=== PATIENT | male | born 1950 | race African-American/Black ===

== ENCOUNTER → 2019-06-29 | Outpatient (CLI) | payer OTHER ==
--- NOTE | 2019-06-29 14:11 | RAD ---
MR#: [id number] Date of Study: 06/29/2019 Ordering Physician: CHERRY MIRZA, Referring Physician: CHERRY MIRZA, Tech: Ela Harden RT R, [facility] AP[facility]OV[facility] Patient Location : OUT-PATIENT Indications Lower Extremity Edema : Bilateral Past History Diabetes Findings Grayscale images of the bilateral greater and lesser saphenous veins were limited but grossly no obvi ous abnormalities noted. The right great saphenous vein measures 3 mm in the left great saphenous vein measures 3 mm. Neither vein shows any evidence of reflux. Bilateral lesser saphenous veins do not reveal any evidence of ref lux. Critical Notification Critical Value: No <Conclusion> 1. Negative for reflux in the bilateral greater and lesser saphenous veins Signed by : Cherry Mirza, Electronically Approved : 06/29/2019 14:10:25
== END | disposition home or self-care (01) ==
LOC: US 12:35
PROVIDERS: ATTEND Internal Medicine Cardiovascular Disease
DX: I87.2 Venous insufficiency (chronic) (peripheral) (principal); E11.9 Type 2 diabetes mellitus without complications; R60.0 Localized edema
CPT/HCPCS: 93970

== ENCOUNTER → 2022-01-30 | Outpatient (CLI) | payer MEDICARE ==
--- NOTE | 2022-01-30 14:10 | RAD ---
MR#: [id number] Date of Study: 01/30/2022 Ordering Physician: CHERRY MIRZA, Referring Physician: CHERRY MIRZA, Tech: Madison Knight, RDMS, RVT, RTR APPROVED REPORT Patient Location: OUT-PATIENT Laterality:Bilateral Indications TIA Risk Factors Diabetes, Smoking Doppler Spectral Velocity Analysis Right Left pCCA 127/19 cm/spCCA 183/36 cm/s mCCA 98/16 cm/smCCA 128/30 cm/s dCCA 77/15 cm/sdCCA 130/29 cm/s ECA 106/ cm/sECA 120/ cm/s pICA 52/10 cm/spICA 50/12 cm/s Kaiden 120/34 cm/smICA 88/26 cm/s dICA 108/32 cm/sdICA 104/32 cm/s Vert. 50/ cm/sVert. 32/ cm/s ICA/CCA 1.22ICA/CCA 0.81 Findings Grayscale which is demonstrate mild diffuse atherosclerotic plaque in the carotid vessels. Overall based on Balestra Svetlana M0 to less than 50% stenosis in the bilateral internal carotid arter ies with normal ICA to CCA ratios. Bilateral vertebral velocities are antegrade and within normal limits although the left vertebral art silvia is not well visualized. Bilateral common carotid artery velocities are mildly elevated without any clear evidence of obstruct jac disease Critical Notification Critical Value: No <Conclusion> 1. No significant extracranial carotid occlusive disease bilaterally. Signed by : Cherry Mirza, Electronically Approved : 01/30/2022 14:10:40
--- NOTE | 2022-01-30 14:12 | RAD ---
MR#: [id number] Date of Study: 01/30/2022 Ordering Physician: CHERRY MIRZA, Referring Physician: CHERRY MIRZA, Tech: Maidson Knight, MARSHAMS, RVT, RTR APPROVED REPORT Patient Location: OUT-PATIENT Indications PAD Risk Factors Diabetes Smoking VELOCITY AND DOPPLER WAVEFORM ANALYSIS RIGHT cm/secWaveformSeverity LEFT cm/secWaveform Severity pCFA 150.9pCFA 156.4 dCFA 140.7dCFA 132.3 Prof Fem Art. 108.3Prof Fem Art. 91.1 Fem Art Prox. 144.4Fem Art Prox. 138.8 Fem Art Mid. 128.6Fem Art Mid. 102.5 Fem Art Dist. 117.5Fem Art Dist. 107.4 Pop Art(AK) 134.2Pop Art(AK) 87.6 Pop Art(BK) 108.3Pop Art(BK) 113.2 CAREER EDUCATION TEACHER Prox. 93.1PTA Prox. 104.8 CAREER EDUCATION TEACHER Dist. 109.9PTA Dist. 66.2 Per Art Prox. 85.1Per Art Prox. 79.5 SURESH Prox. 51.5ATA Prox. 68.0 DPA 94DPA 60 Findings Grayscale images the bilateral lower extremity arterial vessels demonstrates mild to moderate diffuse atherosclerotic plaque. Waveforms are mostly triphasic and biphasic from the common femoral artery to the below-knee vessels. At the level of the ankle there are mostly monophasic waveforms due to se rosa diffuse disease. Critical Notification Critical Value: No <Conclusion> 1. No significant high-grade atherosclerotic disease in the bilateral lower extremities from the com mon femoral artery to the level of the ankle. At the level of the ankle there is severe diffuse dise ase. Signed by : Cherry Mirza, Electronically Approved : 01/30/2022 14:12:19
--- NOTE | 2022-01-30 14:13 | RAD ---
MR#: [id number] Date of Study: 01/30/2022 Ordering Physician: CHERRY MIRZA, Referring Physician: CHERRY MIRZA, Tech: Madison Knight RDMS, RVT, RTR APPROVED REPORT Patient Location: OUT-PATIENT Exam Type: Ankle to Brachial Index Indications PAD Risk Factors Diabetes Smoking Pressures/Indices RightABI LeftABI Brachial [id number] 648peHj0.22 Ankle(PT) 168mmHgAnkle(PT) 158mmHg Ankle(DP) 165mmHgAnkle(DP) 150mmHg Critical Notification Critical Value: No <Conclusion> 1. Mildly elevated bilateral ABIs likely suggestive of calcific disease in small vessels at the leve l of the ankle Signed by : Cherry Mirza, Electronically Approved : 01/30/2022 14:12:58
--- NOTE | 2022-01-30 18:42 | CARD ---
MR#: [id number] Date of Study: 01/30/2022 Ordering Physician: CHERRY MIRZA, Referring Physician: CHERRY MIRZA, Tech: Miya Sargent [facility] APPROVED REPORT EXAM: Two-dimensional and M-mode echocardiogram with Doppler and color Doppler. Other Information Quality : Technically LimitedHR: 67bpm Rhythm : NSR INDICATION CVA/TIA RISK FACTORS Hypertension Obesity Hyperlipidemia 2D DIMENSIONS RVDd2.9 (2.9-3.5cm)Left Atrium(2D)3.6 (1.6-4.0cm) IVSd1.0 (0.7-1.1cm)Aortic Root(2D)3.0 (2.0-3.7cm) LVDd4.8 (3.9-5.9cm)LVOT Diameter2.0 (1.8-2.4cm) PWd0.9 (0.7-1.1cm)LVDs2.6 (2.5-4.0cm) FS (%) 45.1 %SV82.5 ml Aortic Valve AoV Peak Ephraim.163.1cm/sAoV VTI33.7cm AO Peak GR.10.6mmHgLVOT Peak Ephraim.93.2cm/s AO Mean GR.4mmHgAVA (VMAX)1.84cm2 Mitral Valve MV E Pzotmcxj14.2cm/sMV DECEL [id number] MV A Gtlgkcgv963.0cm/sE/A Ratio0.7 Pulmonary Valve PV Peak Rdzkvtbm88.2cm/s Tricuspid Valve TR P. Vxvksenv263yd/sTR Peak Gr.24mmHg LEFT VENTRICLE The left ventricle is normal size. There is normal left ventricular wall thickness. The left ventricu lar systolic function is normal and the ejection fraction is within normal range. LV ejection fractio n is 50 to 55%. There is normal LV segmental wall motion. RIGHT VENTRICLE The right ventricle is normal size. There is normal right ventricular wall thickness. The right ventr icular systolic function is normal. ATRIA The left atrium size is normal. The right atrium size is normal. The interatrial septum is intact wit h no evidence for an atrial septal defect or patent foramen ovale as noted on 2-D or Doppler imaging. AORTIC VALVE The aortic valve is normal in structure and function. Doppler and Color Flow revealed no significant aortic regurgitation. There is no significant aortic valvular stenosis. MITRAL VALVE The mitral valve leaflets are mildly thickened. There is no evidence of mitral valve prolapse. There is no mitral valve stenosis. Doppler and Color-flow revealed mild mitral regurgitation. TRICUSPID VALVE The tricuspid valve is normal in structure and function. Doppler and Color Flow revealed no tricuspid valve regurgitation noted. There is no tricuspid valve stenosis. PULMONIC VALVE The pulmonary valve is normal in structure and function. Doppler and Color Flow revealed no pulmonic valvular regurgitation. GREAT VESSELS The aortic root is normal in size. The ascending aorta is normal in size. The IVC is normal in size a nd collapses >50% with inspiration. PERICARDIAL EFFUSION There is no evidence of significant pericardial effusion. Critical Notification Critical Value: No <Conclusion> The left ventricle is normal size. The left ventricular systolic function is normal and the ejection fraction is within normal range. LV ejection fraction is 50 to 55%. There is normal LV segmental wall motion. There is normal left ventricular wall thickness. The interatrial septum is intact with no evidence for an atrial septal defect or patent foramen ovale as noted on 2-D or Doppler imaging. Doppler and Color Flow revealed no significant aortic regurgitation. There is no significant aortic valvular stenosis. The mitral valve leaflets are mildly thickened. Doppler and Color-flow revealed mild mitral regurgitation. Doppler and Color Flow revealed no tricuspid valve regurgitation noted. Signed by : Daniel Rudolph MD Electronically Approved : 01/30/2022 18:41:47
== END ==
LOC: US 11:07
PROVIDERS: ATTEND Internal Medicine Cardiovascular Disease
DX: I65.23 Occlusion and stenosis of bilateral carotid arteries (principal); I70.203 Unspecified atherosclerosis of native arteries of extremities, bilateral legs; I34.0 Nonrheumatic mitral (valve) insufficiency; I87.2 Venous insufficiency (chronic) (peripheral)
CPT/HCPCS: 93306; 93880; 93922; 93925; C8929